=== PATIENT | female | born 1965 | race Caucasian/White ===

== ENCOUNTER 2017-12-26 03:46 | Emergency (ER) | payer OTHER ==
[~2017-12-26] VITALS: Ht 160 cm; Wt 56.7 kg
== END 2017-12-26 04:59 | disposition home or self-care (01) ==
LOC: ER 03:46
DX: L25.9 Unspecified contact dermatitis, unspecified cause (principal); Z88.0 Allergy status to penicillin; F17.210 Nicotine dependence, cigarettes, uncomplicated
CPT/HCPCS: 96372; 99283; J3301; Q0163

== ENCOUNTER → 2018-02-27 | Outpatient (CLI) | payer OTHER ==
[2018-03-03 07:17] LABS: Specimen Source CERVIX
[2018-03-06 09:55] LABS: Source CERVIX
== END ==
LOC: LAB EV 12:51 → LAB SHORT 12:51
PROVIDERS: Family Medicine
DX: N76.0 Acute vaginitis (principal); R30.0 Dysuria
CPT/HCPCS: 87070; 87077; 87086; 87147; 87186; 87205; 87491; 87591

== ENCOUNTER → 2018-04-09 | Outpatient (CLI) | payer OTHER ==
[2018-04-11 22:10] LABS: CHLAMYDIA TRACHOMATIS, NAA Negative (Negative); NEISSERIA GONORRHOEAE, NAA Negative (Negative)
== END | disposition home or self-care (01) ==
LOC: LAB EV 13:36 → LAB SHORT 13:36
PROVIDERS: Physician Assistant
DX: N89.8 Other specified noninflammatory disorders of vagina (principal)
CPT/HCPCS: 87070; 87205; 87491; 87591

== ENCOUNTER 2018-05-20 15:02 | Emergency (ER) | payer OTHER ==
[~2018-05-20] VITALS: Ht 160 cm; Wt 59.0 kg
[2018-05-20 16:29] LABS: BASOPHILS ABSOLUTE AUTO 0.02 K/mm3 (0.00-0.23); BASOPHILS PERCENT AUTO 0 % (0-2); EOSINOPHILS ABSOLUTE AUTO 0.04 K/mm3 (0.00-0.68); EOSINOPHILS PERCENT AUTO 1 % (0-6); Hematocrit 36.8 % (33.0-51.0); Hemoglobin 12.3 g/dL (11.5-16.0); IMMATURE GRAN ABSOLUTE AUTO 0.01 K/mm3 (0.00-0.10); IMMATURE GRAN PERCENT AUTO 0 % (0-1); LYMPHOCYTES PERCENT AUTO 40 % (21-46); MONOCYTES ABSOLUTE AUTO 0.47 K/mm3 (0.16-1.47); MONOCYTES PERCENT AUTO 8 % (4-13); Mean Corpuscular HGB 30.1 pg (26.0-34.0); Mean Corpuscular HGB Conc 33.4 g/dL (31.5-36.5); Mean Corpuscular Volume 90 fL (80-100); Mean Platelet Volume 9.5 fL (9.1-12.4); NEUTROPHILS ABSOLUTE AUTO 3.09 K/mm3 (1.96-9.15); NEUTROPHILS PERCENT AUTO 51 % (41-73); Platelet Count 282 K/mm3 (150-400); RDW Coefficient Variation 13.1 % (11.7-14.2); RDW Standard Deviation 43.4 fL (35.1-46.3); Red Blood Cell Count 4.08 M/mm3 (3.80-5.20); White Blood Cell Count 6.03 K/mm3 (4.00-11.30)
[2018-05-20 16:39] LABS: Source, Urine Clean Catch
[2018-05-20 16:43] LABS: Bilirubin, Urine Neg (Neg); Blood, Urine 1+ (Neg); Glucose Qualitative, Urine Neg (Neg); Ketones, Urine Neg (Neg); Leukocyte Esterase, Urine 3+ (Neg); Nitrite, Urine Neg (Neg); Protein, Urine Neg (Neg); Urobilinogen, Urine NORM (Normal)
[2018-05-20 16:48] LABS: Alanine Aminotransfer (ALT/SGP 41 U/L (12-78); Albumin, Blood 3.6 g/dL (3.4-5.0); Albumin/Globulin Ratio 1.1 (0.8-1.8); Alk Phos 73 U/L (50-136); Anion Gap 7 mmol/L (6-16); Aspartate Aminotrans (AST/SGOT 20 U/L (12-37); Bilirubin, Total 0.4 mg/dL (0.1-1.0); Blood Urea Nitrogen 16 mg/dL (8-24); Bun/Creatinine Ratio 19.9 (12.0-20.0); CO2, Blood 27 mmol/L (21-32); Calcium, Blood 9.1 mg/dL (8.5-10.1); Chloride, Blood 109 mmol/L (98-108); Creatinine, Blood 0.81 mg/dL (0.40-1.00); Globulin, Blood 3.3 g/dL (2.2-4.0); Glomerular Filtration Rate >60 (60-); Glucose, Blood 106 mg/dL (70-99); Potassium, Blood 3.8 mmol/L (3.5-5.5); Sodium, Blood 143 mmol/L (136-145); Total Protein, Blood 6.9 g/dL (6.4-8.2)
[2018-05-20 16:53] LABS: Appearance, Urine Cloudy (Clear); Color, Urine Yellow (P-Yellow)
[2018-05-20 17:00] LABS: Trichomonas Rare /hpf; White Blood Cells, Urine 50-100 /hpf (0-5)
[2018-05-20 17:01] LABS: Bacteria Mod /hpf; Squamous Epithelial Cells Few /hpf (Few)
[2018-05-20] MEDS ORDERED: Flagyl500 MG PO (19:07)
[2018-05-20] MEDS ORDERED: Bactrim Ds Tab1 EACH PO (19:07)
[2018-05-20 20:24] LABS: Candida species (DNA Probe) Negative (NEGATIVE); G. vaginalis (DNA Probe) Negative (NEGATIVE); T. vaginalis (DNA Probe) Positive (NEGATIVE)
== END 2018-05-20 19:59 | disposition home or self-care (01) ==
LOC: ER 15:02
PROVIDERS: Emergency Medicine; Internal Medicine
DX: A59.01 Trichomonal vulvovaginitis (principal); N39.0 Urinary tract infection, site not specified; F17.210 Nicotine dependence, cigarettes, uncomplicated; Z88.0 Allergy status to penicillin
CPT/HCPCS: 36415; 80053; 81001; 85025; 87086; 87480; 87510; 87660; 99284

== ENCOUNTER 2019-04-01 09:55 | Emergency (ER) | payer OTHER ==
[~2019-04-01] VITALS: Ht 160 cm; Wt 59.0 kg
[~2019-04-01 09:55] MED LIST: Bactrim Ds Tab1 EACH PO; Flagyl500 MG PO
[2019-04-01] MEDS ORDERED: Voltaren100 GM TOP (10:59)
[2019-04-01] MEDS ORDERED: PRED10 PO (10:59)
[2019-04-01] MEDS ORDERED: Flonase 0.05% N16 GM (10:59)
== END 2019-04-01 12:00 | disposition home or self-care (01) ==
LOC: ER 09:55
DX: M25.511 Pain in right shoulder (principal); L23.7 Allergic contact dermatitis due to plants, except food; J32.9 Chronic sinusitis, unspecified; Z88.0 Allergy status to penicillin; Z79.899 Other long term (current) drug therapy; Z79.52 Long term (current) use of systemic steroids; F17.210 Nicotine dependence, cigarettes, uncomplicated
CPT/HCPCS: 73030; 99283-25